=== PATIENT | female | born 2000 | race Caucasian/White ===

== ENCOUNTER 2024-12-17 19:15 | Emergency (ER) | payer MEDICAID, SELFPAY ==
[2024-12-17 19:17] VITALS: BMI 28.3
--- NOTE | 2024-12-17 20:24 | PD.EDADDENDU ---
Emergency Room Addendum Addendum Narrative: When I looked for the patient to start my evaluation, I was told the patient eloped. Shane Kimbrough MD
--- NOTE | 2024-12-17 22:48 | PC.NURSE ---
CALLED PATIENT IN THE LOBBY AND OUTSIDE, NO ANSWER RECEIVED.
--- NOTE | 2024-12-17 23:03 | PC.NURSE ---
CALLED PATIENT IN THE LOBBY AND OUTSIDE, NO ANSWER RECEIVED.
--- NOTE | 2024-12-17 23:24 | PC.NURSE ---
CALLED PATIENT IN THE LOBBY AND OUTSIDE, NO ANSWER RECEIVED.
== END 2024-12-17 23:25 | disposition left against medical advice (07) ==
LOC: SERX 20:31
PROVIDERS: Emergency Provider Emergency Medicine
DX: Z53.21 Procedure and treatment not carried out due to patient leaving prior to being seen by health care provider (principal)

== ENCOUNTER 2025-03-17 18:10 | Emergency (ER) | payer MEDICAID, SELFPAY ==
[2025-03-17 18:13] VITALS: PULSE 115; RESP 20; O2SAT 99; BMI 29.2
[2025-03-17 18:20] VITALS: BP 114/60; PULSE 80; RESP 18; TEMP 37.1; O2SAT 99
--- NOTE | 2025-03-17 18:28 | XR_ITS ---
Examination: Knee, left , 3 views Technique: Knee AP, lateral, oblique 3 views Date and time of exam: March 17, 2025, 1857 hrs. Indications: Patient fell today with injury to the knee, knee pain. Findings: No fracture or dislocation. No foreign body. Impression: No fracture or dislocation.
--- NOTE | 2025-03-17 18:28 | XR_ITS ---
EXAMINATION: Ankle, right 3 views . Technique: Ankle AP, oblique, lateral 3 views Date and time of exam: 0859 hrs. Indications: Patient fell today with injury to the ankle, ankle pain. Findings: No fracture or ankle dislocation. No foreign body. Impression: No fracture or dislocation.
--- NOTE | 2025-03-17 18:28 | XR_ITS ---
Examination: CT brain head without contrast. 2-D sagittal coronal reconstructions Date and time of exam:March 17, 2025, 1926 hrs. Indications: Patient fell today with into the head, head pain CTDI: vol (mGy):46.0. DLP: (mGycm):843. Technique: Multiple CT axial sections of the brain have been obtained, 5 mm slice thickness. Contrast has not been administered. 2-D sagittal, coronal reconstructions have been obtained Low dose protocols were performed. One or more of the following dose reduction techniques were used; automated exposure control, adjustment of the mA and/or KV according to patient size, use of iterative reconstruction technique. Findings: No significant ventricular enlargement. Intra-axial or extra-axial hemorrhage density is not seen. No mass effect or midline shift Basal cisterns are not remarkable. Fourth ventricle is midline. Cranial vault intact. Impression: Negative for acute hemorrhage, mass effect or midline shift
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
--- NOTE | 2025-03-17 18:31 | XR_ITS ---
Examination: PA lateral chest 2 views. Technique: Upright PA lateral chest 2 views. Date and time: March 17, 2025, 1907 hrs. Indications: Patient fell today with injury to the chest, chest pain. Findings: Normal heart size. No pneumothorax. Clavicles, ribs, thoracic vertebral bodies appear intact. Impression: No pneumothorax, pulmonary contusion or hemothorax.
--- NOTE | 2025-03-17 20:24 | PC.NURSE ---
[address] REG[address]ING CT , CT STATED THEY HAD TEXT DR GARDNER ALREADY.
== END 2025-03-17 22:06 | disposition home or self-care (01) ==
PROVIDERS: Emergency Provider Emergency Medicine; PCP Family Medicine
DX: S80.02XA Contusion of left knee, initial encounter (principal); S90.01XA Contusion of right ankle, initial encounter; S20.219A Contusion of unspecified front wall of thorax, initial encounter; S00.93XA Contusion of unspecified part of head, initial encounter; V17.4XXA Pedal cycle driver injured in collision with fixed or stationary object in traffic accident, initial encounter; Y93.55 Activity, bike riding; Y92.89 Other specified places as the place of occurrence of the external cause
CPT/HCPCS: 70450; 71046; 73562; 73610; 99283

== ENCOUNTER 2025-04-19 17:48 | Emergency (ER) | payer MEDICAID, SELFPAY ==
[2025-04-19 17:50] VITALS: PULSE 72; RESP 18; O2SAT 98
[2025-04-19 18:14] VITALS: BP 130/75; PULSE 80; RESP 18; TEMP 37.2; O2SAT 98; BMI 29.7
--- NOTE | 2025-04-19 18:29 | EDNOTE_ITS ---
ED Wound/Laceration-RME/HPI General Chief Complaint: Skin/Abscess/Foreign Body Stated Complaint: NEXPLANON IMPLANT REMOVED, SITE BLEEDING Time Seen by Provider: 04/19/25 18:27 Arrival date/time: 04/19/25 17:48 25F with history of psych presents to ED with incision site bleeding after Nexplanon was removed today. It was stitched at the clinic, but patient took it out because it was itchy. Limitations: no limitations Related Data Home Medications ?Medication ?Instructions ?Recorded ?Confirmed [id number] 1 mg 1 tab PO DAILY 08/09/22 tablet albuterol sulfate 2.5 mg/3 mL 2.5 mg inhalation PRN Sh ortness Of 08/09/22 (0.083 %) solution for nebulization Breath Previous Rx's ?Medication ?Instructions ?Recorded acetaminophen 300 mg-codeine 15 mg 1 tab PO Q8H PRN pa in #14 tabs 08/19/22 tablet ibuprofen 800 mg tablet 800 mg PO Q8H PRN pain #14 t abs 08/19/22 ibuprofen 600 mg tablet 600 mg PO Q6H PRN pain #30 t abs 02/16/24 fluoxetine 20 mg capsule 20 mg PO BID #4 caps 4 quetiapine 25 mg tablet (Seroquel) 25 mg PO TID #6 tab s 03/26/24 esomeprazole magnesium 20 mg 20 mg PO QDAY #20 caps capsule,delayed release (Nexium) naproxen 500 mg tablet 500 mg PO BID PRN pain #30 t abs 04/07/24 Allergies Allergy/AdvReac Type Severity Reaction Status Date / Time amoxicillin Allergy Severe Swelling Verified 03/17/25 18:17 of Lip/Tongue/Throat honey Allergy Severe HIVES Verified 03/17/25 18:17 lurasidone (From Latuda) Allergy Severe Anaphylaxis Verified 03/17/25 18:17 olanzapine Allergy Severe Swelling Verified 03/17/25 18:17 of Lip/Tongue/Throat pepper (genus Capsicum) Allergy Severe Hives Verified 03/17/25 18:17 Penicillins Allergy Swelling Verified 12/17/24 19:17 of Lip/Tongue/Throat UNKNOWN ANTIBIOTICS Allergy Uncoded 03/17/25 18:17 Review of Systems Review of Systems Systems Reviewed: All systems reviewed, normal except as documented Integumentary/Breasts Skin/Breast: Reports as per HPI and Reports skin pain Past Medical History Past Medical History NEUROLOGIC: Positive Transient Ischemic Attacks (TIA); Negative Neurological Disorders CARDIAC: Negative Cardiac Disorders or Congestive Heart Failure RESPIRATORY: Negative Chronic Obstructive Pulmonary Disease (COPD) or Asthma GASTROINTESTINAL: Negative Gastrointestinal Disorders, Hepatitis or Colorectal Cancer GENITOURINARY: Negative Genitourinary Disorders, Renal Disease or Prostate Cancer REPRODUCTIVE: Negative Breast Cancer or Testicular Cancer MUSCULOSKELETAL: Negative Musculoskeletal Disorders or Bone Cancer ENDOCRINE: Negative Endocrine Disorders, Diabetes Mellitus Type 1 or Diabetes Mellitus Type 2 HEMATOLOGIC: Negative Blood Disorders or Sickle Cell Disease PSYCHO/SOCIAL: Positive Psychiatric Problems, Schizophrenia, Depression and Anxiety OTHER HISTORY: Positive Autism; Negative Autoimmune Disease, Blood Transfusions, Blood Transfusion Reaction, Anesthesia Reactions, Organ Transplant, Chemotherapy, Radiation Therapy, Hyperbaric Therapy, MRSA, VRSA, Vancomycin-Resistant Enterococci, Human Immunodeficiency Virus (HIV), Chicken Pox, Measles, Mumps, Rubella ([place] Measles), Pertussis, Clostridium Difficile, Cancer, Breast Cancer, Cervical Cancer, Colorectal Cancer, Lung Cancer, Ovarian Cancer, Prostate Cancer or Testicular Cancer Family History FAMILY HISTORY: Positive Family Cancer; Negative Family Psychiatric Problems, Family Respiratory Disorders, Family Cardiac Disorders, Family Gastrointestinal Problems, Family Surgery or Family Anesthesia Reaction Surgical History SURGICAL: Negative Neurologic Surgery, Brain Shunt or Organ Transplant Social History SMOKING STATUS: Never smoker SECOND HAND EXPOSURE: No (pt report she vapes) SUBSTANCE USE: does not use ED Exam General Limitations: Present no limitations General appearance: Present alert and in no apparent distress Head Head exam: Present atraumatic Neck Neck exam: Present normal inspection, full ROM and trachea midline Chest Chest inspection: Present normal inspection and symmetric chest wall rise Extremities Exam Extremities exam: Present full ROM Expanded Upper Extremity Exam Arm exam: Present full ROM and laceration (1 cm healing on L side) Neurological Exam Neurological exam: Present alert and oriented X3 Psychiatric Psychiatric exam: Present normal affect and normal mood Skin Skin exam: Present warm, dry, intact and normal color Course Quality Measures none Orders Category Date Time Status Wound Care NOW Care 04/19/25 18:27 Active Vital Signs Vital signs: Vital Signs Temperature 98.9 F 04/19/25 18:14 Pulse Rate 80 04/19/25 18:14 Respiratory Rate 18 04/19/25 18:14 Blood Pressure 130/75 04/19/25 18:14 Pulse Oximetry (%) 98 04/19/25 18:14 Oxygen Delivery Method Room Air 04/19/25 18:14 O2 at 98% on RA and WNLs Wound / Laceration MDM Narrative MDM Narrative:: 25F with history of psych presents to ED with incision site bleeding after Nexplanon was removed today. It was stitched at the clinic, but patient took it out because it was itchy. Physical exam reveals 1 cm lac on L upper arm. No active bleeding. Patient is afebrile, calm, and alert. Wound cleaned and closed with combo of glue and steri-strips. Patient data External records reviewed:: [facility] previous records Clinical information provided by:: patient Social determinants that could affect healthcare access:: mental health Patient has the following chronic illnesses:: psych How is presenting disease/condition affected by chronic disease/condition?: exacerbated by Evaluation data The following diagnostics were reviewed and interpreted by me:: other (specify) (none) Lab and/or radiology exams considered but not ordered:: not ordered Interpretation Summary: n/a Medications / Prescriptions Medications or Prescriptions considered but not ordered:: not ordered Medication administrations:: n/a Consultations Consultation(s) initiated? (list below): No Diagnosis Wound Differential Diagnosis: laceration, abrasion and avulsion of skin Most likely diagnosis given after review of the tests above:: laceration Admission Indicated Admission indicated?: not indicated Admission Request Was there a request for admission?: No Disposition Plan Disposition Plan: Discharge Discharge Attestation Discharge Attestation: The patient and all family members were given an opportunity to ask questions and understood the discharge instructions. Discharge instructions specifically effects, indications for sooner follow up or return to the emergency department, and the expected course of current diagnosis. Patient condition: Stable Discharge Plan Plan Patient Disposition: HOME (Self Care) Discharge Disposition comment: Stable Prescriptions/Referrals Prescriptions/Med Rec: No Action albuterol sulfate 2.5 mg /3 mL (0.083 %) solution for nebulization 2.5 mg inhalation PRN (Reason: Shortness Of Breath) Patient Comments: INHALE 1 VIAL VIA NEBULIZER EVERY 6 HRS NEEDED FOR 30 DAYS quetiapine [Seroquel] 25 mg tablet 25 mg PO TID Qty: 6 0RF Rx Instructions: 1x day, 2x night fluoxetine 20 mg capsule 20 mg PO BID Qty: 4 0RF esomeprazole magnesium [Nexium] 20 mg capsule,delayed release(DR/EC) 20 mg PO QDAY Qty: 20 0RF naproxen 500 mg tablet 500 mg PO BID PRN (Reason: pain) Qty: 30 0RF 1 mg Tablet 1 tab PO DAILY acetaminophen-codeine 300-15 mg tablet 1 tab PO Q8H PRN (Reason: pain) Qty: 14 0RF ibuprofen 800 mg tablet 800 mg PO Q8H PRN (Reason: pain) Qty: 14 0RF ibuprofen 600 mg tablet 600 mg PO Q6H PRN (Reason: pain) Qty: 30 0RF Problem List Clinical Impression: Laceration Patient/Caregiver Discharge Instructions Education Materials: ED Laceration Small or ... Additional Instructions: Please follow-up with PCP within 24-48 hours and return immediately if symptoms worsen. Try to keep area dry. Print Language: Kinyarwanda Stand Alone Forms: Patient Portal Info Letter PA/MUSICAL INSTRUMENT MAKER OR REPAIRER Supervising Physician PA/MUSICAL INSTRUMENT MAKER OR REPAIRER Supervising Physician: Dr. Colbert
== END 2025-04-19 18:53 | disposition home or self-care (01) ==
LOC: SERX 18:42
PROVIDERS: Emergency Provider Emergency Medicine
DX: L76.22 Postprocedural hemorrhage of skin and subcutaneous tissue following other procedure (principal); Y84.8 Other medical procedures as the cause of abnormal reaction of the patient, or of later complication, without mention of misadventure at the time of the procedure
CPT/HCPCS: 12001; 99283

== ENCOUNTER 2025-05-03 23:10 | Emergency (ER) | payer MEDICAID, SELFPAY ==
[2025-05-03 23:11] VITALS: BP 132/82; PULSE 100; RESP 18; TEMP 36.7; O2SAT 98
[2025-05-03 23:29] VITALS: PULSE 104; RESP 18; O2SAT 99; BMI 29.5
--- NOTE | 2025-05-03 23:52 | PD.EDHA ---
ED Headache RME/HPI General Chief Complaint: Nausea/Vomiting/Diarrhea Stated Complaint: HEADACHE Time Seen by Provider: 05/03/25 23:50 Arrival date/time: 05/03/25 23:10 25F with history of psych and migraines presents to ED with 1 day of PEREA, N/V, and light sensitivity. Tylenol did not help. Limitations: no limitations Related Data Home Medications ?Medication ?Instructions ?Recorded ?Confirmed [id number] 1 mg 1 tab PO DAILY 07/20/22 08/09/22 tablet albuterol sulfate 2.5 mg/3 mL 2.5 mg inhalation PRN Shortness Of 08/09/22 (0.083 %) solution for nebulization Breath Previous Rx's ?Medication ?Instructions ?Recorded acetaminophen 300 mg-codeine 15 mg 1 tab PO Q8H PRN pain #14 tabs 08/19/22 tablet ibuprofen 800 mg tablet 800 mg PO Q8H PRN pain #14 tabs 08/19/22 ibuprofen 600 mg tablet 600 mg PO Q6H PRN pain #30 tabs 02/16/24 fluoxetine 20 mg capsule 20 mg PO BID #4 caps 03/26/24 quetiapine 25 mg tablet (Seroquel) 25 mg PO TID #6 tabs 03/26/24 esomeprazole magnesium 20 mg 20 mg PO QDAY #20 caps 03/30/24 capsule,delayed release (Nexium) naproxen 500 mg tablet 500 mg PO BID PRN pain #30 tabs 04/07/24 Allergies Allergy/AdvReac Type Severity Reaction Status Date / Time amoxicillin Allergy Severe Swelling Verified 05/03/25 23:29 of Lip/Tongue/Throat honey Allergy Severe HIVES Verified 05/03/25 23:29 lurasidone (From Latuda) Allergy Severe Anaphylaxis Verified 05/03/25 23:29 olanzapine Allergy Severe Swelling Verified 05/03/25 23:29 of Lip/Tongue/Throat pepper (genus Capsicum) Allergy Severe Hives Verified 05/03/25 23:29 Penicillins Allergy Swelling Verified 05/03/25 23:29 of Lip/Tongue/Throat ondansetron (From Zofran) AdvReac Swelling Verified 05/03/25 23:29 of Lip/Tongue/Throat UNKNOWN ANTIBIOTICS Allergy Uncoded 05/03/25 23:29 Review of Systems Review of Systems Systems Reviewed: All systems reviewed, normal except as documented Constitutional Constitutional: Reports as per HPI and Reports headache(s) Eyes Eyes: Reports as per HPI and Reports photophobia ENT Ears, Nose, Mouth, and Throat: Reports headache(s) Gastrointestinal Gastrointestinal: Reports as per HPI, Reports hematemesis and Reports nausea Neurologic Neurologic: Reports headache(s) Past Medical History Past Medical History NEUROLOGIC: Positive Transient Ischemic Attacks (TIA); Negative Neurological Disorders CARDIAC: Negative Cardiac Disorders or Congestive Heart Failure RESPIRATORY: Negative Chronic Obstructive Pulmonary Disease (COPD) or Asthma GASTROINTESTINAL: Negative Gastrointestinal Disorders, Hepatitis or Colorectal Cancer GENITOURINARY: Negative Genitourinary Disorders, Renal Disease or Prostate Cancer REPRODUCTIVE: Negative Breast Cancer or Testicular Cancer MUSCULOSKELETAL: Negative Musculoskeletal Disorders or Bone Cancer ENDOCRINE: Negative Endocrine Disorders, Diabetes Mellitus Type 1 or Diabetes Mellitus Type 2 HEMATOLOGIC: Negative Blood Disorders or Sickle Cell Disease PSYCHO/SOCIAL: Positive Psychiatric Problems, Schizophrenia, Depression and Anxiety OTHER HISTORY: Positive Autism; Negative Autoimmune Disease, Blood Transfusions, Blood Transfusion Reaction, Anesthesia Reactions, Organ Transplant, Chemotherapy, Radiation Therapy, Hyperbaric Therapy, MRSA, VRSA, Vancomycin-Resistant Enterococci, Human Immunodeficiency Virus (HIV), Chicken Pox, Measles, Mumps, Rubella ([place] Measles), Pertussis, Clostridium Difficile, Cancer, Breast Cancer, Cervical Cancer, Colorectal Cancer, Lung Cancer, Ovarian Cancer, Prostate Cancer or Testicular Cancer Family History FAMILY HISTORY: Positive Family Cancer; Negative Family Psychiatric Problems, Family Respiratory Disorders, Family Cardiac Disorders, Family Gastrointestinal Problems, Family Surgery or Family Anesthesia Reaction Surgical History SURGICAL: Negative Neurologic Surgery, Brain Shunt or Organ Transplant Social History SMOKING STATUS: Current some day smoker SECOND HAND EXPOSURE: No (pt report she vapes) SUBSTANCE USE: does not use ED Exam General Limitations: Present no limitations General appearance: Present alert and in no apparent distress Head Head exam: Present atraumatic Eye Eye exam: Present normal appearance, PERRL and EOMI Neck Neck exam: Present normal inspection, full ROM and trachea midline Chest Chest inspection: Present normal inspection and symmetric chest wall rise Neurological Exam Neurological exam: Present alert and oriented X3 Psychiatric Psychiatric exam: Present normal affect and normal mood Skin Skin exam: Present warm, dry, intact and normal color Course Quality Measures none Orders Category Date Time Status Metoclopramide [Reglan] Med 05/03/25 23:50 Discontinued 10 mg PO X1 ONE SUMAtriptan INJ [Imitrex Inj] Med 05/03/25 23:50 Discontinued 6 mg SC X1 ONE Vital Signs Vital signs: Vital Signs Temperature 98.1 F 05/03/25 23:11 Pulse Rate 100 05/03/25 23:11 Respiratory Rate 18 05/03/25 23:11 Blood Pressure 132/82 H 05/03/25 23:11 Pulse Oximetry (%) 98 05/03/25 23:11 Oxygen Delivery Method Room Air 05/03/25 23:11 O2 at 98% on RA and WNLs Headache MDM Narrative MDM Narrative:: 25F with history of psych and migraines presents to ED with 1 day of PEREA, N/V, and light sensitivity. Tylenol did not help. Physical exam reveals normal pupil response and EOM. Speech normal. Patient is afebrile, calm, and alert. Patient felt better after migraine meds. Patient data External records reviewed:: [facility] previous records Clinical information provided by:: patient Social determinants that could affect healthcare access:: mental health Patient has the following chronic illnesses:: psych/migraines How is presenting disease/condition affected by chronic disease/condition?: exacerbated by Evaluation data The following diagnostics were reviewed and interpreted by me:: other (specify) (none) Lab and/or radiology exams considered but not ordered:: not ordered Interpretation Summary: n/a Medications / Prescriptions Medications or Prescriptions considered but not ordered:: ordered Medication administrations:: Medication Administration History Discontinued Medications Metoclopramide HCl (Metoclopramide 5 Mg Tablet) 10 mg PO X1 ONE Stop: 05/03/25 23:51 Last Admin: 05/04/25 00:21 Dose: 10 mg Documented By: SANTO Sumatriptan Succinate (Sumatriptan Inj 6 Mg/0.5 Ml Vial) 6 mg SC X1 ONE Stop: 05/03/25 23:51 Last Admin: 05/04/25 00:22 Dose: 6 mg Documented By: SANTO above Consultations Consultation(s) initiated? (list below): No Diagnosis Differential diagnosis headache: migraine, tension headache, subarachnoid hemorrhage, headache, meningitis, sinusitis and postconcussion syndrome Most likely diagnosis given after review of the tests above:: migraine Admission Indicated Admission indicated?: not indicated Admission Request Was there a request for admission?: No Disposition Plan Disposition Plan: Discharge Discharge Attestation Discharge Attestation: The patient and all family members were given an opportunity to ask questions and understood the discharge instructions. Discharge instructions specifically effects, indications for sooner follow up or return to the emergency department, and the expected course of current diagnosis. Patient condition: Stable Discharge Plan Plan Patient Disposition: HOME (Self Care) Discharge Disposition comment: Stable Prescriptions/Referrals Prescriptions/Med Rec: No Action albuterol sulfate 2.5 mg /3 mL (0.083 %) solution for nebulization 2.5 mg inhalation PRN (Reason: Shortness Of Breath) Patient Comments: INHALE 1 VIAL VIA NEBULIZER EVERY 6 HRS NEEDED FOR 30 DAYS quetiapine [Seroquel] 25 mg tablet 25 mg PO TID Qty: 6 0RF Rx Instructions: 1x day, 2x night fluoxetine 20 mg capsule 20 mg PO BID Qty: 4 0RF esomeprazole magnesium [Nexium] 20 mg capsule,delayed release(DR/EC) 20 mg PO QDAY Qty: 20 0RF naproxen 500 mg tablet 500 mg PO BID PRN (Reason: pain) Qty: 30 0RF 1 mg Tablet 1 tab PO DAILY acetaminophen-codeine 300-15 mg tablet 1 tab PO Q8H PRN (Reason: pain) Qty: 14 0RF ibuprofen 800 mg tablet 800 mg PO Q8H PRN (Reason: pain) Qty: 14 0RF ibuprofen 600 mg tablet 600 mg PO Q6H PRN (Reason: pain) Qty: 30 0RF Problem List Clinical Impression: Migraine Patient/Caregiver Discharge Instructions Education Materials: ED Headache, Migraine, Classic Additional Instructions: Please follow-up with PCP within 24-48 hours and return immediately if symptoms worsen. Print Language: Malay Stand Alone Forms: Patient Portal Info Letter NGUYEN/JONNY Supervising Physician NGUYEN/JONNY Supervising Physician: Dr. Amaya
[2025-05-04] MEDS: METOCLOPRAMIDE 5 MG TABLET 10 MG PO (00:21)
[2025-05-04] MEDS: SUMAtriptan INJ 6 MG/0.5 ML VIAL SC (00:22)
== END 2025-05-04 00:54 | disposition home or self-care (01) ==
LOC: SERX 05-04 00:58
PROVIDERS: Emergency Provider Emergency Medicine; PCP Physician Assistant
DX: G43.109 Migraine with aura, not intractable, without status migrainosus (principal)
CPT/HCPCS: 96372; 99284; J3030; A9270

== ENCOUNTER 2025-05-24 15:03 | Emergency (ER) | payer MEDICAID, SELFPAY ==
[2025-05-24 15:04] VITALS: BP 118/78; PULSE 96; RESP 18; TEMP 36.8; O2SAT 99; BMI 28.3
[2025-05-24 15:13] VITALS: PULSE 98; O2SAT 100
--- NOTE | 2025-05-24 15:35 | EDNOTE_ITS ---
<Statement entered by Allyson Chun MD - 05/24/25 17:52> As co-signing physician, I was present and available for consult prn. I concur with the plan and care as documented by the midlevel provider. ED General RME/HPI General Stated complaint: Anxiety, stress reaction Time Seen by Provider: 05/24/25 15:16 Arrival date/time: 05/24/25 15:03 25-year-old female presents to the Emergency Department today via EMS patient does have psychiatric disorder patient reports that she was cooking today and she dropped her food and became angry patient reports he punched herself because she was angry. Patient reports she feels better now. Patient reports her last go home patient reports no suicidal or homicidal ideation Limitations: no limitations Related Data Home Medications ?Medication ?Instructions ?Recorded ?Confirmed [id number] 1 mg 1 tab PO DAILY 08/09/22 tablet albuterol sulfate 2.5 mg/3 mL 2.5 mg inhalation PRN Sh ortness Of 08/09/22 (0.083 %) solution for nebulization Breath Previous Rx's ?Medication ?Instructions ?Recorded acetaminophen 300 mg-codeine 15 mg 1 tab PO Q8H PRN pa in #14 tabs 08/19/22 tablet ibuprofen 800 mg tablet 800 mg PO Q8H PRN pain #14 t abs 08/19/22 ibuprofen 600 mg tablet 600 mg PO Q6H PRN pain #30 t abs 02/16/24 fluoxetine 20 mg capsule 20 mg PO BID #4 caps 4 quetiapine 25 mg tablet (Seroquel) 25 mg PO TID #6 tab s 03/26/24 esomeprazole magnesium 20 mg 20 mg PO QDAY #20 caps capsule,delayed release (Nexium) naproxen 500 mg tablet 500 mg PO BID PRN pain #30 t abs 04/07/24 Allergies Allergy/AdvReac Type Severity Reaction Status Date / Time amoxicillin Allergy Severe Swelling Verified 05/24/25 15:13 of Lip/Tongue/Throat honey Allergy Severe HIVES Verified 05/24/25 15:13 lurasidone (From Latuda) Allergy Severe Anaphylaxis Verified 05/24/25 15:13 olanzapine Allergy Severe Swelling Verified 05/24/25 15:13 of Lip/Tongue/Throat pepper (genus Capsicum) Allergy Severe Hives Verified 05/24/25 15:13 Penicillins Allergy Swelling Verified 05/24/25 15:13 of Lip/Tongue/Throat ondansetron (From Zofran) AdvReac Swelling Verified 05/24/25 15:13 of Lip/Tongue/Throat UNKNOWN ANTIBIOTICS Allergy Uncoded 05/24/25 15:13 Review of Systems Review of Systems Systems Reviewed: All systems reviewed, normal except as documented Constitutional Constitutional: Reports system reviewed and no additional complaints, except as documented, Denies fever(s) and Denies headache(s) Eyes Eyes: Reports system reviewed and no additional complaints, except as documented and Denies blurry vision ENT Ears, Nose, Mouth, and Throat: Reports system reviewed and no additional complaints, except as documented, Denies headache(s), Denies nasal congestion and Denies nasal discharge Cardiovascular Cardiovascular: Reports system reviewed and no additional complaints, except as documented, Denies chest pain and Denies dyspnea Respiratory Respiratory: Reports system reviewed and no additional complaints, except as documented, Denies chest congestion, Denies cough and Denies dyspnea Gastrointestinal Gastrointestinal: Reports system reviewed and no additional complaints, except as documented and Denies abdominal pain Integumentary/Breasts Skin/Breast: Reports system reviewed and no additional complaints, except as documented and Denies rash Neurologic Neurologic: Reports system reviewed and no additional complaints, except as documented, Reports as per HPI and Denies headache(s) Psychiatric Psychiatric: Reports system reviewed and no additional complaints, except as documented and Reports anxiety Past Medical History Past Medical History NEUROLOGIC: Positive Transient Ischemic Attacks (TIA); Negative Neurological Disorders CARDIAC: Negative Cardiac Disorders or Congestive Heart Failure RESPIRATORY: Negative Chronic Obstructive Pulmonary Disease (COPD) or Asthma GASTROINTESTINAL: Negative Gastrointestinal Disorders, Hepatitis or Colorectal Cancer GENITOURINARY: Negative Genitourinary Disorders, Renal Disease or Prostate Cancer REPRODUCTIVE: Negative Breast Cancer or Testicular Cancer MUSCULOSKELETAL: Negative Musculoskeletal Disorders or Bone Cancer ENDOCRINE: Negative Endocrine Disorders, Diabetes Mellitus Type 1 or Diabetes Mellitus Type 2 HEMATOLOGIC: Negative Blood Disorders or Sickle Cell Disease PSYCHO/SOCIAL: Positive Psychiatric Problems, Schizophrenia, Depression and Anxiety OTHER HISTORY: Positive Autism; Negative Autoimmune Disease, Blood Transfusions, Blood Transfusion Reaction, Anesthesia Reactions, Organ Transplant, Chemotherapy, Radiation Therapy, Hyperbaric Therapy, MRSA, VRSA, Vancomycin-Resistant Enterococci, Human Immunodeficiency Virus (HIV), Chicken Pox, Measles, Mumps, Rubella ([place] Measles), Pertussis, Clostridium Difficile, Cancer, Breast Cancer, Cervical Cancer, Colorectal Cancer, Lung Cancer, Ovarian Cancer, Prostate Cancer or Testicular Cancer Family History FAMILY HISTORY: Positive Family Cancer; Negative Family Psychiatric Problems, Family Respiratory Disorders, Family Cardiac Disorders, Family Gastrointestinal Problems, Family Surgery or Family Anesthesia Reaction Surgical History SURGICAL: Negative Neurologic Surgery, Brain Shunt or Organ Transplant Social History SMOKING STATUS: Never smoker SECOND HAND EXPOSURE: No (pt report she vapes) SUBSTANCE USE: does not use ED Exam General Limitations: Present no limitations General appearance: Present alert and in no apparent distress Head Head exam: Present atraumatic, normocephalic and normal inspection Eye Eye exam: Present normal appearance, PERRL and EOMI; Absent conjunctival injecti on ENT ENT exam: Present normal exam, normal oropharynx and mucous membranes moist Neck Neck exam: Present normal inspection, full ROM and trachea midline Chest Chest inspection: Present normal inspection and symmetric chest wall rise Respiratory Respiratory exam: Present normal lung sounds bilaterally; Absent respiratory distress Cardiovascular Cardiovascular exam: Present regular rate, normal rhythm and normal heart sounds Abdominal Exam Abdominal exam: Present soft and normal bowel sounds; Absent distention, tenderness, guarding, rebound or rigidity Extremities Exam Extremities exam: Present normal inspection and full ROM Back Exam Back exam: Present normal inspection and full ROM Neurological Exam Neurological exam: Present alert, oriented X3 and CN II-XII intact Psychiatric Psychiatric exam: Present normal affect and normal mood Skin Skin exam: Present warm, dry, intact and normal color Course Quality Measures none Vital Signs Vital signs: Vital Signs Temperature 98.3 F 05/24/25 15:04 Pulse Rate 96 05/24/25 15:04 Respiratory Rate 18 05/24/25 15:04 Blood Pressure 118/78 05/24/25 15:04 Pulse Oximetry (%) 99 05/24/25 15:04 Oxygen Delivery Method Room Air 05/24/25 15:04 O2 saturation 9 9% room air within normal limits Discharge Plan Plan Patient Disposition: HOME (Self Care) Discharge Disposition comment: stable Prescriptions/Referrals Prescriptions/Med Rec: No Action albuterol sulfate 2.5 mg /3 mL (0.083 %) solution for nebulization 2.5 mg inhalation PRN (Reason: Shortness Of Breath) Patient Comments: INHALE 1 VIAL VIA NEBULIZER EVERY 6 HRS NEEDED FOR 30 DAYS quetiapine [Seroquel] 25 mg tablet 25 mg PO TID Qty: 6 0RF Rx Instructions: 1x day, 2x night fluoxetine 20 mg capsule 20 mg PO BID Qty: 4 0RF esomeprazole magnesium [Nexium] 20 mg capsule,delayed release(DR/EC) 20 mg PO QDAY Qty: 20 0RF naproxen 500 mg tablet 500 mg PO BID PRN (Reason: pain) Qty: 30 0RF 1 mg Tablet 1 tab PO DAILY acetaminophen-codeine 300-15 mg tablet 1 tab PO Q8H PRN (Reason: pain) Qty: 14 0RF ibuprofen 800 mg tablet 800 mg PO Q8H PRN (Reason: pain) Qty: 14 0RF ibuprofen 600 mg tablet 600 mg PO Q6H PRN (Reason: pain) Qty: 30 0RF Problem List Clinical Impression: Stress reaction Patient/Caregiver Discharge Instructions Education Materials: ED Anxiety Reaction Additional Instructions: Please follow up with your primary care doctor in the next 24-48hrs for any worsening symptoms return here immediately Print Language: Portuguese Stand Alone Forms: [employer] Info., Patient Portal Info Letter PA/SPAR FINISHER Supervising Physician PA/SPAR FINISHER Supervising Physician: Dr. chun MDM Narrative MDM hospital course (for use when minimal MDM required): 25-year-old female presents to the Emergency Department today via EMS patient does have psychiatric disorder patient reports that she was cooking today and she dropped her food and became angry patient reports he punched herself because she was angry. Patient reports she feels better now. Patient reports her last go home patient reports no suicidal or homicidal ideation On exam patient well-appearing patient is not appear toxic no acute stress Patient is no bruising or swelling Patient GCS 15 answers all questions appropriately Psychiatric examination is normal at this time Patient discharged home in no distress to follow-up with primary care doctor in the next 24 to 48 hours and for any worsening symptoms to return to the ER immediately Clinical Information Provided by: patient Medical Records reviewed [facility] Meds/Rx considered, not ordered None Labs/Rad/Tests considered, not ordered None Chronic Illness/Social Conditions which may negatively complicate care or outcome(s)-explain: None or not applicable EKG EKG not done Labs Labs: none Imaging Imaging interpretation: none Medication Administration(s) none Diagnosis Differential Diagnosis ED Complaint MDM: Anxiety, stress reaction
== END 2025-05-24 16:00 | disposition home or self-care (01) ==
LOC: SERX 16:07
PROVIDERS: Emergency Provider Nurse Practitioner Primary Care
DX: F43.9 Reaction to severe stress, unspecified (principal)
CPT/HCPCS: 99281